=== PATIENT | female | born 1985 | race Caucasian/White ===

== ENCOUNTER 2023-03-22 07:45 | Day surgery (SDC) | payer BC ==
[~2023-03-22] VITALS: Ht 160 cm; Wt 103.2 kg
[~2023-03-22 07:45] MED LIST: BIRTH CONTROL; VITAMIN D310 MC5
[2023-03-22 08:16] VITALS: BP 127/71
--- NOTE | 2023-03-22 08:19 | NUR ---
Ambulatory in Day Surgery. History, Chart, Medications and Allergies reviewed before start of procedure. Lungs clear T/O to Auscultation. Patient confirms NPO status and agrees with scheduled surgery. Pre-Op teaching done. Pt verbalizes understanding. Patient States Post-Procedure ride home has been arranged.
--- NOTE | 2023-03-22 10:15 | NUR ---
03/22/23 1015 Gael Polk History, Chart, Medications and Allergies reviewed before start of procedure.MONITOR INTACT WITH CONTINUOUS PULSE OXIMETRY, CONTINUOUS END TITAL CO2, AND INTERMITTENT BLOOD PRESSURE.EKG MONITORED DURING PROCEDURE.O2 VIA POM MASK INTACT THROUGHOUT SEDATION/PROCEDURE. Bite Block Placed,WILL REMOVE AFTER PROCEDURE.See Anesthesia record.
[2023-03-22 10:48] VITALS: BP 126/69
[2023-03-22 11:00] VITALS: BP 142/82
--- NOTE | 2023-03-22 11:22 | NUR ---
Patient up to Ambulate independently. Gait steady. Discharge instructions reviewed with patient. Patient verbalizes understanding. Copy given to patient to take home, WELL . Patient States Post-Procedure ride home has been arranged. Discharged via wheelchair to private car for ride home.
== END 2023-03-22 11:22 | disposition home or self-care (01) ==
LOC: ORSCMMR 07:45 → ORD 07:45
PROVIDERS: Surgery
PROC: 0DB68ZX Excision of Stomach, Via Natural or Artificial Opening Endoscopic, Diagnostic (ICD-10-PCS; principal; 2023-03-22 10:30)
DX: K21.9 Gastro-esophageal reflux disease without esophagitis (principal); K44.9 Diaphragmatic hernia without obstruction or gangrene; E66.9 Obesity, unspecified; Z68.41 Body mass index [BMI] 40.0-44.9, adult; Z79.3 Long term (current) use of hormonal contraceptives
CPT/HCPCS: 88305; 88342; J2001; J2704; J7120